=== PATIENT | female | born 1990 | race American Indian/Alaskan Native ===

== ENCOUNTER 2016-09-17 17:37 | Emergency (ER) | payer SELFPAY ==
[2016-09-17 17:57] VITALS: BP 139/80
--- NOTE | 2016-09-17 18:23 | Emergency Department Report ---
Entered by BRENDAN GREEN, acting as scribe for RAKESH CISSE NP. Chief Complaint: Abdominal Pain Stated Complaint: ABD PAIN/VOMITTING Time Seen by Provider: 09/17/16 18:11 - HPI History of Present Illness: 25 y/o female who is non-toxic, non ill appearing, in no acute distress with c/ o N/V/D x 3 days. She reports cramping abdominal pain in triage area but denies abdominal pain at this time. Pt states she has been unable to tolerate PO intake since 19:00 last night. Associated symptoms include generalized weakness , fatigue and known sick contacts within the home but she denies chest pain, shortness of breath, epigastric pain, GI bleeding. - ROS Review of Systems: Reports N/V/D, generalized weakness and fatigue. Denies epigastric pain, GI bleeding, chest pain, shortness of breath. - Exam Vital Signs: Vital Signs 09/17/16 17:52 Temperature 98.2 F Pulse Rate 109 H Respiratory 20 Rate Blood Pressure 139/80 O2 Sat by Pulse 99 Oximetry Physical Exam: Constitutional: Non toxic appearing, NAD. Abdomen: Abdomen is non-distended, soft with no tenderness to palpation in all quadrants. No abdominal bruit. No epigastric pain. Negative [place] Tenderness. Negative [place] sign. MSE screening note: Focused history and physical exam performed. Due to findings the following was ordered: CBC, CMP, amylase, lipase, serum HCG qualitative, UA ED Disposition for MSE Condition: Stable Instructions: Abdominal Pain (ED) This documentation as recorded by the scribe,BRENDAN GREEN,accurately reflects the service I personally performed and the decisions made by TANNA white MARTIN, RUTH.
[2016-09-17 18:38] LABS: Basophils % (Auto) 0.2 % (0.0-1.8); Eosinophils % (Auto) 0.6 % (0.0-4.3); Hemoglobin 12.9 gm/dl (10.1-14.3); Mean Corpuscular HGB Conc 33 % (30-34); Mean Corpuscular Hemoglobin 30 pg (28-32); Mean Corpuscular Volume 89 fl (79-97); Platelet Count 258 K/mm3 (140-440); Red Blood Count 4.37 M/mm3 (3.65-5.03); Red Cell Distribution Width 14.9 % (13.2-15.2); White Blood Count 13.8 K/mm3 (4.5-11.0)
[2016-09-17 18:51] LABS: Amylase 49 units/L (27-131); Lipase 22 units/L (13-60)
[2016-09-17 18:53] LABS: Alanine Aminotransferase 6 units/L (7-56); Albumin/Globulin Ratio 1.3 %; Alkaline Phosphatase 65 units/L (35-129); Anion Gap 20 mmol/L; Blood Urea Nitrogen 6 mg/dL (7-17); Calcium 9.2 mg/dL (8.4-10.2); Carbon Dioxide 19 mmol/L (22-30); Chloride 102.4 mmol/L (98-107); Glucose 110 mg/dL (65-100); Sodium 137 mmol/L (137-145); Total Protein 7.2 g/dL (6.3-8.2)
--- NOTE | 2016-09-19 19:50 | ED Elopement Review ---
ED Pt Elopement review - Results review Lab results: Laboratory Tests 09/17/16 09/17/16 09/17/16 18:18 18:18 18:18 WBC 13.8 H RBC 4.37 Hgb 12.9 Hct 39.0 MCV 89 MCH 30 MCHC 33 RDW 14.9 Plt Count 258 Lymph % (Auto) 6.7 L [place] % (Auto) 4.5 Eos % (Auto) 0.6 Baso % (Auto) 0.2 Lymph # 0.9 L [place] # 0.6 Eos # 0.1 Baso # 0.0 Seg Neutrophils % 88.0 H Seg Neutrophils # 12.2 H Sodium 137 Potassium 4.0 Chloride 102.4 Carbon Dioxide 19 L Anion Gap 20 BUN 6 L Creatinine 0.5 L Estimated GFR > 60 BUN/Creatinine Ratio 12.00 Glucose 110 H Calcium 9.2 Total Bilirubin 0.70 AST 12 ALT 6 L Alkaline Phosphatase 65 Total Protein 7.2 Albumin 4.0 Albumin/Globulin Ratio 1.3 Amylase 49 Lipase 22 HCG, Qual 09/17/16 18:18 WBC RBC Hgb Hct MCV MCH MCHC RDW Plt Count Lymph % (Auto) [place] % (Auto) Eos % (Auto) Baso % (Auto) Lymph # [place] # Eos # Baso # Seg Neutrophils % Seg Neutrophils # Sodium Potassium Chloride Carbon Dioxide Anion Gap BUN Creatinine Estimated GFR BUN/Creatinine Ratio Glucose Calcium Total Bilirubin AST ALT Alkaline Phosphatase Total Protein Albumin Albumin/Globulin Ratio Amylase Lipase HCG, Qual Positive - Call Back decision Pt Call Back Decision: No action required
== END 2016-09-18 02:36 | disposition left against medical advice (07) ==
LOC: ED 17:37
DX: R10.9 Unspecified abdominal pain (principal); R53.1 Weakness; R53.83 Other fatigue; Z53.21 Procedure and treatment not carried out due to patient leaving prior to being seen by health care provider
CPT/HCPCS: 36415; 80053; 82150; 83690; 84703; 85025

== ENCOUNTER 2017-01-18 04:30 | Outpatient (CLI) | payer SELFPAY ==
[2017-01-18] MEDS ORDERED: LACTATED RINGERS 1,000 ML ONE (05:06)
[2017-01-18 05:40] LABS: Urine Drugs of Abuse Note Disclamer
[2017-01-18 05:59] LABS: Bilirubin,Urine NEG (Negative); Blood,Urine NEG (Negative); Ketones,Urine NEG (Negative); Leukocyte Esterase,Urine NEG (Negative); Mucus,Urine 2+ /HPF; Nitrite,Urine NEG (Negative); Protein,Urine <15 mg/dL mg/dL (Negative)
[2017-01-18 08:39] VITALS: BP 107/52
--- NOTE | 2017-01-18 09:20 | Event Note ---
Date: 01/18/17 patient presented to triage after being d/c'd from [facility] last night with multiple vague complaints. Per patient's report she found out she was at "[address]" [address] [facility] and given EDC of 01/18/17 +/- 21 days based on third trimester u/s. we do not have access to that u/s at today's visit, per our u/s today EDC 01/29/17, grade 1 placenta, ASHLEY 9.9, BPP 10/10. occasional irregular ctx noted on toco, patient denies any discomforts at this time. reviewed u/s, stable VSS and reassuring monitoring. Instructed patient to perform [facility] BID. Discussed with patient that she can f/u with our office early next week for appointment so we can schedule c/s. Dr. Merritt consulted, agrees with plan. Patient and female support person verbalize understanding of teaching and plan of care.
--- NOTE | 2017-01-18 10:30 | Ultrasound Report ---
BIOPHYSICAL PROFILE: 2 - breathing movements 2 - movements 2 - posture and tone 2 - Qualitative amniotic fluid volume 8 - TOTAL SCORE OF POSSIBLE 8 Heart Rate (bpm) 132
--- NOTE | 2017-01-18 11:00 | Ultrasound Report ---
OB including transvaginal sonography: Gestation: Single Position: Cephalic Amniotic Fluid: ASHLEY = 9.9 cm Placenta: Posterior and fundal Placental Grade: 1 Heart Rate: 134 BPM Cervical length: 4.3 cm (Normal > 3 cm) NEUROANATOMY VISUALIZED: Not visualized. ANATOMY VISUALIZED: Normal with exception of abdominal cord insertion which is not visualized. SPINE VISUALIZED: Normal. BPD: 9.5 cm = 38 w 4 d HC: 33.3 cm = 38 w 0 d AC: 26.3 cm = 40 w 1 d FL: 7.3 cm = 37 w 1 d HC/AC Ratio: 0.92 Cephalic Index: 85.6 Estimated Weight: 3687 grams Clinical age = 40 w 0 d EDC: 01/18/17 US Gest. Age = 38 w 3 d EDC: 01/29/17.
== END 2017-01-18 09:26 | disposition home or self-care (01) ==
LOC: TRG 04:30
PROVIDERS: ATTEND Obstetrics & Gynecology
DX: O48.0 Post-term pregnancy (principal); Z3A.40 40 weeks gestation of pregnancy
CPT/HCPCS: 59025; 76805; 76817; 76819; 80307; 81001; 96360; J7120